=== PATIENT | female | born 1995 | race Caucasian/White ===

== ENCOUNTER 2017-08-07 20:30 | Inpatient (IN) | payer OTHER, MEDICAID, SELFPAY ==
[2017-08-07] MEDS: Lactated Ringers 1,000 ML 50 ML IV ×2 (21:04→23:06)
[2017-08-07 21:25] VITALS: BMI 41.0
[2017-08-07 21:33] LABS: Hematocrit 40.7 % (37-47); Hemoglobin 13.8 g/dl (12.0-15.0); Mean Corp Hgb Conc 33.9 g/gl (32-36); Mean Corpuscular Hgb 30.4 pg (27.0-32.0); Mean Corpuscular Volume 89.6 fL (81-99); Mean Platelet Vol. 11.1 fl (6.2-12.0); Platelet Count 188 K/mm3 (150-450); RBC Distribution Width CV 13.3 % (11.6-14.6); RBC Distribution Width SD 43.2 fl (35.1-43.9); Red Blood Count 4.54 M/mm3 (4.2-5.4); White Blood Count 11.2 K/mm3 (4.4-11.0)
[2017-08-07 21:34] LABS: Scan Indicated on CBC? Y/N NO
[2017-08-07] MEDS: Mag Hydrox/Al Hydrox/Simeth 30 ML UDC PO (21:54)
[2017-08-07] MEDS: Acetaminophen 325 MG Tablet PO (21:54)
[2017-08-08] MEDS: Oxytocin 30 units/NS 500 ml 30 UNITS/500 ML IV.SOLN IV (01:22)
[2017-08-08] MEDS: Ondansetron 4 MG/2 ML Vial IV (02:17)
[2017-08-08] MEDS: Mag Hydrox/Al Hydrox/Simeth 30 ML UDC PO (02:19)
[2017-08-08] MEDS: Lactated Ringers 1,000 ML 50 ML IV ×2 (03:19→07:26)
--- NOTE | 2017-08-08 06:37 | PCM.PN.OB ---
Subjective: Comfortable but feeling nauseous. Objective: Afeb VSS - Physical Exam General: Alert, Oriented x3, Cooperative, No apparent distress Lungs: Clear to auscultation, Normal air movement Cardiovascular: Regular rate, Regular Rhythm Abdomen: Non Tender, Gravid, Appropriate for Gestational Age Extremities: No edema, No Calf Tenderness Skin: No rashes Neurological: Neuro grossly intact Psych/Mental Status: Normal Affect Comment: CE 5-6/80/0 Weight: 217 lb 2.485 oz Body Mass Index (BMI) 41.0 Laboratory Tests Past 24 Hrs 08/07/17 08/07/17 08/07/17 21:04 21:04 21:04 WBC 11.2 H RBC 4.54 Hgb 13.8 Hct 40.7 MCV 89.6 MCH 30.4 MCHC 33.9 RDW 13.3 RDW Differential 43.2 Plt Count 188 MPV 11.1 Blood Type Cancelled O NEGATIVE A1 Antigen Typing Cancelled Rho(D) Type Cancelled Antibody Screen Cancelled NEGATIVE Assessment/Plan Admitted in early labor. FHR tracing with some episodes of lack of variability. Internal heart rate monitor placed and good response to placement. IUPC placed. Contractions appear adequate at this point. Amniotic fluid appears clear.
[2017-08-08] MEDS: Oxytocin 30 units/NS 500 ml 30 UNITS/500 ML IV.SOLN 334 UNITS IV (10:17)
--- NOTE | 2017-08-08 10:26 | PCM.OB.VAG ---
Vaginal Delivery Maternal Presentation: Active Labor 39w4d ega in early active labor Amniotic Membrane Rupture Type: Artificial Rupture of Membrane time: 0630 Amniotic Fluid Description: Clear Final COLE: 08/11/17 Final COLE Source: LMP Gestational age: 39 Weeks and 4 Days Date of Procedure: 08/08/17 Pre-Operative Diagnosis: labor Surgery/ Procedure Performed: Spontaneous Vaginal Delivery Anesthesiologist: Janeen Mandujano Type of Anesthesia: Epidural Description of Procedure: Patient progressed from 8 cm to FD+3 station. Pushed for 5 efforts to deliver the head. There was a nuchal cord x 1 tight which evulsed in attempt to reduce it. Baby was delivered immediately and the cord clamped. Baby had active cry at delivery. The placenta was delivered spontaneously intact with an eccentrically located 3VC. The uterus was well contracted after delivery. The vagina and cervix were inspected and found to be intact. Presentation: Vertex Placental Delivery Description: Spontaneous Placenta Disposition: [facility] Percentage of Placenta Abruption: 0 Cord Vessel Description: 3 Vessels Nuchal Cord Compression: With compression Cord Entanglement: Around neck x 1, tight Drain: Rockwell to straight drain Estimated Blood Loss: 300cc Infant A gender: Male (1 minute): 9 (5 minute): 9 Episiotomy Description: None Laceration: None Medications given after delivery: IV Pitocin Complications: None
--- NOTE | 2017-08-08 10:36 | DCINST_ITS ---
Discharge Diet: No Restrictions Discharge Activity: Return to Normal Activity, May Drive, May Shower Return to work on:: 10/04/17 May shower in (days): 0 May resume sexual activity in: 4-6 weeks Call your doctor if your incision/area has: Sudden Increased Bleeding, Increased Pain/ Swelling, Foul Smelling Discharge Call your doctor if you observe: Fever of 101 or Higher, Inability to urinate, Inability to have a bowel movement, Using more than one pad per hour, Shortness of breath, Chest pain, Calf discomfort, Uncontrolled pain Cleanse incision/area with: Soap & Water Additional Instructions: If you experience any of the following, contact your healthcare provider. * Bleeding that soaks a pad every hour for 2 hours * Fever 100.4 or higher * Unrelieved incision or abdominal pain * Swelling, redness, discharge or bleeding from your incision or episiotomy site * Your incision begins to separate * Problems urinating (including inability to urinate or burning while urinating) . * Visual changes * Severe headache * Flu-like symptoms * Pain or redness in one of both of your breasts * Pain, warmth, tenderness or swelling in your legs, especially the calf area * Frequent nausea and vomiting * Symptoms of depression or anxiety If you experience any of the following, call 911 or go to the nearest Emergency Room. * Chest pain * Problems breathing * Seizure activity * Partial or complete paralysis of a body part, slurred speech, weakness or drooping of the face, or a sudden inability to walk or hold your balance Allergies/Adverse Reactions: Allergies No Known Allergies Allergy (Verified 08/07/17 21:14) Medications to take at Discharge Pnv95/Ferrous Fumarate/FA [ Vitamins Tablet] 1 each PO DAILY 03/13/16 Ibuprofen [Motrin] 800 mg PO TID PRN PRN #30 tablet 08/08/17 The following prescriptions were given: Ibuprofen [Motrin] 800 mg PO TID PRN PRN #30 tablet PRN Reason: pain or cramping Please Follow Up With: William Avalos When: 6 weeks Primary Care Physician: Mustapha Weinstein [Primary Care Provider] - Proposed Discharge Date: 08/10/17
[2017-08-08] MEDS: Oxytocin 30 units/NS 500 ml 30 UNITS/500 ML IV.SOLN 167 UNITS IV (10:49)
[2017-08-08] MEDS: Methylergonovine 0.2 MG/ML Ampul IM (11:22)
[2017-08-08] MEDS: 0.9% Saline Lock 10 ML Syringe IV (11:58)
[2017-08-08 12:20] VITALS: BP 115/57; PULSE 74; RESP 18; TEMP 36.4; O2SAT 98
[2017-08-08 15:47] VITALS: BP 130/72; PULSE 94; RESP 14; TEMP 37.1; O2SAT 95
[2017-08-08 19:29] VITALS: BP 128/80; PULSE 94; RESP 20; TEMP 36.9
[2017-08-09 00:08] VITALS: BP 118/67; PULSE 94; RESP 18; TEMP 36
[2017-08-09 04:37] VITALS: BP 124/70; PULSE 78; RESP 18; TEMP 36.4
[2017-08-09 04:59] LABS: Hematocrit 37.2 % (37-47); Hemoglobin 12.9 g/dl (12.0-15.0); Mean Corp Hgb Conc 34.7 g/gl (32-36); Mean Corpuscular Hgb 31.4 pg (27.0-32.0); Mean Corpuscular Volume 90.5 fL (81-99); Mean Platelet Vol. 11.2 fl (6.2-12.0); Platelet Count 161 K/mm3 (150-450); RBC Distribution Width CV 13.3 % (11.6-14.6); Red Blood Count 4.11 M/mm3 (4.2-5.4); White Blood Count 11.7 K/mm3 (4.4-11.0)
[2017-08-09 05:02] LABS: Scan Indicated on CBC? Y/N NO
--- NOTE | 2017-08-09 07:10 | PCM.PN.OB ---
Subjective: Doing well. No specific complaints. Objective: Afeb VSS - Physical Exam General: Alert, Oriented x3, Cooperative, No apparent distress Lungs: Clear to auscultation, Normal air movement Cardiovascular: Regular rate, Regular Rhythm Abdomen: Soft, Non Tender, Non-Distended, - - Fundus firm nontender Skin: No rashes Psych/Mental Status: Normal Affect Comment: lochia light Vital Signs Temp Pulse Resp BP Pulse Ox 97.5 F 78 18 124/70 95 08/09/17 04:37 08/09/17 04:37 08/09/17 04:37 08/09/17 04:37 08/08/17 15:47 Oxygen Delivery Method Room Air Weight: 217 lb 2.485 oz Body Mass Index (BMI) 41.0 Intake and Output for Last 24 Hours 08/07/17 08/08/17 08/09/17 23:59 23:59 23:59 Intake Total 2760 Output Total 2450 Balance 310 Laboratory Tests Past 24 Hrs 08/09/17 04:45 WBC 11.7 H RBC 4.11 L Hgb 12.9 Hct 37.2 MCV 90.5 MCH 31.4 MCHC 34.7 RDW 13.3 RDW Differential 43.0 Plt Count 161 MPV 11.2 Assessment/Plan Doing well on PP day#1. Continue routine PP care.
[2017-08-09 09:00] VITALS: BP 118/78; PULSE 86; RESP 20; TEMP 36.2
[2017-08-09 14:00] VITALS: BP 116/75; PULSE 81; RESP 20; TEMP 36.6
[2017-08-09 15:00] VITALS: BP 116/75; PULSE 81; RESP 20; TEMP 36.6
--- NOTE | 2017-08-10 08:10 | PCM.DC.SUM ---
Discharge Date and Diagnosis Date of Admission: 08/07/17 Date of Discharge: 08/09/17 - Primary Discharge Diagnosis S/P Hospital Course and Treatment Consultations 08/07/17 21:09 Consult: Anesthesia Routine Comment: Reason For Exam: R Operations: None Procedures: - - Summary of Care Provided: The patient is a 22 year old F admitted in early active labor at term. Progressed to FD then pushed to deliver a live without complication. course unremarkable. Discharged home on PP day#1.[] Discharge Diet: No Restrictions Discharge Activity: Return to Normal Activity, May Drive, May Shower Return to work on:: 10/04/17 May shower in (days): 0 May resume sexual activity in: 4-6 weeks Call your doctor if your incision/area has: Sudden Increased Bleeding, Increased Pain/ Swelling, Foul Smelling Discharge Call your doctor if you observe: Fever of 101 or Higher, Inability to urinate, Inability to have a bowel movement, Using more than one pad per hour, Shortness of breath, Chest pain, Calf discomfort, Uncontrolled pain Cleanse incision/area with: Soap & Water Home Medications: Medications to take at Discharge RX: Pnv95/Ferrous Fumarate/FA [ Vitamins Tablet] 1 each PO DAILY 03/13/16 RX: Ibuprofen [Motrin] 800 mg PO TID PRN PRN #30 tablet 08/08/17 Following Prescrptions Were Given to Patient: RX: Ibuprofen [Motrin] 800 mg PO TID PRN PRN #30 tablet PRN Reason: pain or cramping Primary Care Physician: Mustapha Weinstein [Primary Care Provider] - Please Follow Up With: William Avalos When: 6 weeks Disposition: Home Minutes spent on discharge:: 15 Meaningful Use Info Meaningful Use Diagnoses (Choose all that apply): None applicable
== END 2017-08-09 15:20 | disposition home or self-care (01) | DRG 775 ==
PROVIDERS: Admitting Provider Obstetrics & Gynecology; Family Provider Family Medicine; PCP Family Medicine; Visit Provider Obstetrics & Gynecology
DX: O69.1XX0 Labor and delivery complicated by cord around neck, with compression, not applicable or unspecified (principal); B95.1 Streptococcus, group B, as the cause of diseases classified elsewhere; Z3A.39 39 weeks gestation of pregnancy; Z37.0 Single live birth
CPT/HCPCS: 59025; 59050; 85027; 86850; 86900; 86901; 99218; J7120; A4216; G0378; J0290; J2405

== ENCOUNTER → 2018-11-10 19:29 | Outpatient (CLI) | payer OTHER, MEDICAID, SELFPAY ==
[2018-11-10 21:45] LABS: Chlamydia Trachomatis by PCR Negative (Negative); Neisserai gonorrhoeae by PCR Negative (Negative); Probe Check PASS; Sample Adequacy Control PASS; Specimen Processing Control PASS
[2018-11-15 10:48] LABS: HPV Reflexed? NOT INDICATED
--- OUTSIDE RECORDS SUMMARY | 2018-12-27 15:14 | XMS RPT_ITS ---
:1995 Author Organization OHIP Care Team Providers Name Role William Gentile Attending Unavailable STENCEL, SHI Primary Care Unavailable Seals, William Referring Unavailable Seals, William Attending Unavailable Stencel, Shi Attending Unavailable Stencel, Shi Primary Care Unavailable Michael Blackwell Attending Unavailable Stencel, Shi Primary Care Unavailable Stencel, Shi Attending Unavailable Stencel, Shi Primary Care Unavailable Stencel, Shi Admitting Unavailable Stencel, Shi Attending Unavailable Stencel, Shi Primary Care Unavailable Stencel, Shi Admitting Unavailable Stencel, Shi Attending Unavailable Stencel, Shi Primary Care Unavailable RuthAdali camacho Attending Unavailable Stencel, Shi Primary Care Unavailable RuthAdali Admitting Unavailable RuthAdali Admitting Unavailable RuthAdali Attending Unavailable Stencel, Shi Primary Care Unavailable [place], Ngoc S Attending Unavailable [place], Ngoc S Admitting Unavailable [place], Ngoc S Primary Care Unavailable Pastor Escobar Admitting Unavailable Pastor Escobar Attending Unavailable Michael Blackwell Primary Care Unavailable [place], Ngoc S Attending Unavailable [place], Ngoc S Primary Care Unavailable [place], Ngoc S Attending Unavailable [place], Ngoc S Primary Care Unavailable [place], Ngoc S Admitting Unavailable [place], Ngoc S Attending Unavailable [place], Ngoc S Primary Care Unavailable [place], Ngoc S Attending Unavailable [place], Ngoc S Primary Care Unavailable [place], Ngoc S Admitting Unavailable [place], Ngoc S Attending Unavailable [place], Ngoc S Primary Care Unavailable [place], Ngoc S Attending Unavailable [place], Ngoc S Primary Care Unavailable [place], Ngoc S Admitting Unavailable [place], Ngoc S Attending Unavailable [place], Ngoc S Primary Care Unavailable PROBLEMS PROBLEMS DATE TYPE CONDITION / CODE ATTENDING STATUS SOURCE 11/25/2018 Unknown Z34.81 - Encounter William Avalos for supervision of Community other normal Hospital , first Repository trimester / Z34.81(ICD-10) 11/11/2018 Unknown Z32.01 - Encounter William Avalos for test, Community result positive / Hospital Z32.01(ICD-10) Repository 11/11/2018 Unknown Z11.3 - Encounter William Avalos for screening for Community infections with a Hospital predominantly Repository sexual mode of transmission / Z11.3(ICD-10) 11/11/2018 Unknown Z12.4 - Encounter William Avalos for screening for Community malignant neoplasm [facility] / Repository Z12.4(ICD-10) PROCEDURES PROCEDURES No Procedure Records FoundRESULTS RESULTS URINE DRUG SCREEN Collected: 11/25/2018 Status: F Source: JESE (STONEY) 9:47 AM [facility] REPOSITORY Order Comment: Comments: CHECK IMMUNITY STATUS List of Drugs Taken or Suspected? UNK TYPE CODE TESTS RESULT OUT OF RANGE REFERENCE UNITS LAB L505.0075 TO BE Normal CONFIRMED Result Comment: CONFIRMATORY TESTING FOR ALL POSITIVE URINE DRUG SCREEN RESULTS WILL ONLY BE SENT OUT UPON PHYSICIAN ORDER. VISTA Urine Drug Screen methods provide only preliminary analytical test results. A more specific alternate chemical method must be used in order to obtain a confirmed analytical result. Gas chromatography/mass spectrometery (GC/MS) is the preferred confirmatory method. Clinical consideration and professional judgement should be applied to any drug of abuse test result, particularly when preliminary positive results are used. URINE TCA TESTING MUST BE ORDERED SEPARATELY. USE TEST MNEMONIC: [facility] LAB L505.5005 VISTA UDS PH 6 Normal LAB L505.5015 <1000 ng/mL AMPHETAMINES Normal NEGATIVE LAB L505.5025 < 200 ng/mL BARBITIURATES Normal NEGATIVE LAB L505.5035 < 200 ng/mL BENZODIAZIPINE Normal NEGATIVE LAB L505.5045 < 300 ng/mL COCAINE Normal NEGATIVE LAB L505.5055 < 500 ng/mL ECSTACY Normal NEGATIVE LAB L505.5065 < 300 ng/mL METHADONE Normal NEGATIVE LAB L505.5075 < 300 ng/mL OPIATES Normal NEGATIVE LAB L505.5085 < 25 ng/mL PCP Normal NEGATIVE LAB L505.5095 < 50 ng/mL THC Normal NEGATIVE Performed By: #### L505.5000, L505.6240 #### [facility] [address] [facility] [place], [place], [id number] NICOTINE URINE DRUG Collected: 11/25/2018 Status: F Source: JESE SCREEN 9:47 AM [facility] REPOSITORY Order Comment: Comments: CHECK IMMUNITY STATUS List of Drugs Taken or Suspected? UNK TYPE CODE TESTS RESULT OUT OF RANGE REFERENCE UNITS LAB L505.6250 TO BE Normal CONFIRMED Result Comment: CONFIRMATORY TESTING FOR ALL POSITIVE URINE DRUG SCREEN RESULTS WILL ONLY BE SENT OUT UPON PHYSICIAN ORDER. The results of Urine Drug Screen methods provide only preliminary analytical test results. A more specific alternate chemical method must be used in order to obtain a confirmed analytical result. Gas chromatography/mass spectrometery (GC/MS) is the preferred confirmatory method. Clinical consideration and professional judgement should be applied to any drug of abuse test result, particularly when preliminary positive results are used. LAB L505.6270 <200 ng/mL Normal COT DRG Negative SCREEN Result Comment: Cotinine is the first-stage metabolite of Nicotine. Performed By: #### L505.5000, L505.6240 #### [facility] [address] [place], [address] URINALYSIS, ROUTINE Collected: 11/25/2018 Status: F Source: JESE (DIPSTICK) 9:47 AM [facility] REPOSITORY Order Comment: Comments: CHECK IMMUNITY STATUS How was Urine Obtained? Urine, Random TYPE CODE TESTS RESULT OUT OF RANGE REFERENCE UNITS LAB L400.3000 Yellow COLOR Normal Yellow LAB L400.3050 Clear Normal CLARITY Sl. Cloudy LAB L400.3200 Normal mg/dl Normal GLUCOSE, UR Normal LAB L400.3300 Negative mg/dL Normal BILIRUBIN URINE Negative LAB L400.3400 Negative mg/dl Normal KETONE UR Negative LAB L400.3465 1.002-1.030 Normal SP.GR. DIPSTX 1.020 LAB L400.3550 5.0 - 8.0 pH UR Normal 6.0 LAB L400.3600 Negative mg/dl PROT Normal DIPSTX Negative LAB L400.3700 Normal mg/dl Normal UROBILI Normal LAB L400.3750 Negative Normal NITRITE UR Negative LAB L400.3780 Negative /ul Normal OCCULT BLOOD-UR Negative LAB L400.3800 Negative /ul LEUK Normal ESTERASE Negative Performed By: #### L400.2011 #### [facility] [address] [place], [address] CBC W/DIFF, AUTOMATED Collected: 11/25/2018 Status: F Source: THOUSANDSTICKS 9:47 AM [facility] REPOSITORY TYPE CODE TESTS RESULT OUT OF RANGE REFERENCE UNITS LAB L100.1000 4.4-11.0 K/mm3 Normal WBC 7.5 LAB L100.1200 4.2-5.4 M/mm3 Normal RBC 4.60 LAB L100.1300 12.0-15.0 g/dl Normal HGB 13.3 LAB L100.1400 37-47 % Normal HCT 39.1 LAB L100.1500 81-99 fL Normal MCV 85.0 LAB L100.1600 27.0-32.0 pg Normal MCH 28.9 LAB L100.1700 32-36 g/gl Normal MCHC 34.0 LAB L100.1810 11.6-14.6 % Normal RDW CV 13.0 LAB L100.1820 35.1-43.9 fl Normal RDW SD 40.3 LAB L100.1900 150-450 K/mm3 Normal PLT 272 LAB L100.2000 6.2-12.0 fl Normal MPV 10.2 LAB L100.2100 47-70 % Normal NEUT% 65.9 LAB L100.2200 19-41 % Normal LY% 27.1 LAB L100.2300 0-10 % Normal MONO% 5.7 LAB L100.2400 0-5 % Normal EO% 1.1 LAB L100.2500 0-1 % Normal BASO% 0.1 LAB L100.2550 0.0-0.9 % Normal IM GRAN % 0.100 Result Comment: IG% - Immature Granulocytes (promyelocytes, myelocytes and metamyelocytes) > 1% indicates that a LEFT SHIFT is Present. LAB L100.2620 2.0-7.7 X10 3/uL Normal Absolute Neut 5.0 LAB L100.2720 0.83-4.51 X10 3/ul Normal Absolute Lymph 2.04 Performed By: #### L100.0100 #### [facility] [address] [place], [address] THYROID STIM HORMONE Collected: 11/25/2018 Status: F Source: JESE (TSH) 9:47 AM [facility] REPOSITORY TYPE CODE TESTS RESULT OUT OF RANGE REFERENCE UNITS LAB L501.9520 0.358-3.74 uIU/mL Normal TSH 0.38 Performed By: #### L501.9520 #### [facility] [address] [facility] [address] [place], [address] T AND S-NO Collected: 11/25/2018 Status: F Source: JESE CHARGE W/PNP 9:47 AM [facility] REPOSITORY Order Comment: Reason for Type AND Screen/Red Cells: Surgery? N TYPE CODE TESTS RESULT OUT OF RANGE REFERENCE UNITS LAB B10.0800 O Normal BLOOD NEGATIVE TYPE GEL LAB B100.4050 Normal Ab SCREEN NEGATIVE GEL Performed By: #### B100.7550 #### [facility] [address] [place], [address] RUBELLA IGG Collected: 11/25/2018 Status: F Source: THOUSANDSTICKS 9:47 AM [facility] REPOSITORY Order Comment: Comments: CHECK IMMUNITY STATUS TYPE CODE TESTS RESULT OUT OF RANGE REFERENCE UNITS LAB L509.4000 IU/mL Normal Rubella IgG 18.6 Result Comment: Antibody results Interpretation of Immune Status < 5 IU/ml Presumed Non-immune 5 - < 10 IU/ml Equivocal > or = 10 IU/ml Presumed Immune Performed By: #### L509.4000, L3890.6005 #### [facility] [address] [facility] [address] [place], [address] HIV - WCH Collected: 11/25/2018 Status: F Source: JESE 9:47 AM [facility] REPOSITORY Order Comment: Comments: CHECK IMMUNITY STATUS TYPE CODE TESTS RESULT OUT OF RANGE REFERENCE UNITS LAB L3890.6005 Nonreactive Normal HIV - WCH Non-Reactive Performed By: #### L509.4000, L3890.6005 #### [facility] [address] [place], [address] HEPATITIS B SURFACE Collected: 11/25/2018 Status: F Source: JESE AG 9:47 AM [facility] REPOSITORY Order Comment: Comments: CHECK IMMUNITY STATUS TYPE CODE TESTS RESULT OUT OF RANGE REFERENCE UNITS LAB L3100.0400 Negative Normal HB Negative SURF AG Result Comment: Performed at: [facility] [address] [id number] Park Activities Coordinator: Raman Lowe PhD, Phone: [phone] Performed By: #### L3100.0390, L3100.0625, L3400.0000 #### [facility] (refer to report for specific site) refer to report for address and phone number HEPATITIS C ANTIBODIES Collected: 11/25/2018 Status: F Source: JESE 9:47 AM [facility] REPOSITORY Order Comment: Comments: CHECK IMMUNITY STATUS TYPE CODE TESTS RESULT OUT OF RANGE REFERENCE UNITS LAB L3100.0650 0.0-0.9 s/co ratio Normal HEP C AB <0.1 Result Comment: Negative: < 0.8 Indeterminate: 0.8 - 0.9 Positive: > 0.9 The CDC recommends that a positive HCV antibody result be followed up with a HCV Nucleic Acid Amplification test (575500). Performed By: #### L3100.0390, L3100.0625, L3400.0000 #### [facility] (refer to report for specific site) refer to report for address and phone number V-ZOSTER IGG Collected: 11/25/2018 Status: F Source: JESE (IMMUNITY) 9:47 AM [facility] REPOSITORY Order Comment: Comments: CHECK IMMUNITY STATUS TYPE CODE TESTS RESULT OUT OF RANGE REFERENCE UNITS LAB L3400.0000 Immune >165 index Normal VZOST IgG 440 [address] Result Comment: Negative <135 Equivocal 135 - 165 Positive >165 A positive result generally indicates exposure to the pathogen or administration of specific immunoglobulins, but it is not indication of active infection or stage of disease. Performed By: #### L3100.0390, L3100.0625, L3400.0000 #### [facility] (refer to report for specific site) refer to report for address and phone number RPR Collected: 11/25/2018 Status: F Source: THOUSANDSTICKS 9:47 AM [facility] REPOSITORY TYPE CODE TESTS RESULT OUT OF REFERENCE UNITS RANGE LAB L700.5100 NONREACTIVE Normal RPR NONREACTIVE Performed By: #### L700.5100 #### [facility] [address] [place], [address] CT/NG WCH BY PCR Collected: 11/10/2018 Status: F Source: THOUSANDSTICKS 3:05 PM [facility] REPOSITORY TYPE CODE TESTS RESULT OUT OF RANGE REFERENCE UNITS LAB L8200.2100 Negative Normal Chlam Negative Trac PCR LAB L8200.2200 Negative Normal NG by Negative PCR Performed By: #### L8200.2000 #### [facility] [address] 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 Specimen Comment: No. of containers..01 ThinPrep Vial TYPE CODE TESTS RESULT OUT OF RANGE REFERENCE UNITS LAB L7400.0800 . Normal DIAGN Comment Result Comment: NEGATIVE FOR INTRAEPITHELIAL LESION AND MALIGNANCY. LAB L7400.0900 . Normal ADEQ Comment Result Comment: Satisfactory for evaluation. Endocervical and/or squamous metaplastic cells (endocervical component) are present. LAB L7400.1400 . Normal PERFORM Comment Result Comment: Vesna Griffith Rn Physician Office (ASCP) LAB L7400.2575 . Normal TEST METHOD Comment Result Comment: This liquid based ThinPrep(R) pap test was screened with the use of an image guided system. LAB L7400.2600 . Normal . COMM LAB L7400.2700 . Normal PAPSMR Comment Result Comment: The Pap smear is a screening test designed to aid in the detection of premalignant and malignant conditions of the uterine cervix. It is not a diagnostic procedure and should not be used as the sole means of detecting cervical cancer. Both false-positive and false-negative reports do occur. LAB L7400.2800 . Normal HPV RFLX Comment Result Comment: The HPV DNA reflex criteria were not met with this specimen result therefore, no HPV testing was performed. Performed at: [facility] [address] [id number] Park Activities Coordinator: Siri Conklin MD, Phone: [phone] Performed By: #### L7400.0350 #### [facility] (refer to report for specific site) refer to report for address and phone number XR CHEST 2 VIEWS Observed: 09/08/2018 Status: F Source: SHINTO 10:12 AM [facility] REPOSITORY Exam Date/Time: 09/08/2018 10:19 EDT Reason for Exam: Chest pain Report STUDY: XR Chest 2 Views; 09/08/2018 10:19 am INDICATION: Chest pain. COMPARISON: None. ACCESSION NUMBER(S): [id number] ORDERING CLINICIAN: Ngoc Rivas FINDINGS: PA and lateral views of the chest were obtained. No focal infiltrate, pleural effusion or pneumothorax is identified. The cardiac silhouette is within normal limits for size. IMPRESSION: No focal infiltrate or pneumothorax. FINAL REPORT Dictated: 09/08/2018 11:01 am Julian Schmidt MD Signed (Electronic Signature): 09/08/2018 11:01 am Signed by: Julian Schmidt MD Technologist: TRBerlin CBC W/ AUTO DIFF Collected: 07/21/2018 Status: F Source: SHINTO 4:00 PM [facility] REPOSITORY TYPE CODE TESTS RESULT OUT OF RANGE REFERENCE UNITS LAB 36027892(L 3.6-11.0 E3/mcL OINC) Normal WBC 8.7 LAB 89283393(L 3.90-5.40 E6/mcL OINC) Normal RBC 4.98 LAB 30008237(L 12.0-16.0 G/DL OINC) Normal Hgb 14.6 LAB 68889669(L 36.0-48.0 % OINC) Normal Hct 43.8 LAB 65354148(L 11.5-14.5 % OINC) Normal RDW 13.7 LAB 35958129(L 27.0-31.0 pg OINC) Normal MCH 29.3 LAB 92420114(L 33.0-37.0 G/DL OINC) Normal MCHC 33.4 LAB 88600134(L 78.0-100.0 fL OINC) Normal MCV 87.9 LAB 16690299(L 7.4-11.0 fL OINC) Normal MPV 9.1 LAB 60902560(L 130-400 E3/mcL OINC) Normal Platelet 285 Performed By: #### [id number] #### [facility] [address] [place] [address] AUTO DIFF Collected: 07/21/2018 Status: F Source: SHINTO 4:00 PM [facility] REPOSITORY Order Comment: Order Added by Discern Expert. TYPE CODE TESTS RESULT OUT OF RANGE REFERENCE UNITS LAB 30120200(L 37.0-75.0 % OINC) Normal Neutro Auto 61.9 LAB 18739512(L 20.0-55.0 % OINC) Normal Lymph Auto 29.6 LAB 40881846(L 0.0-10.0 % OINC) Normal [place] Auto 7.3 LAB 92142218(L 0.0-11.0 % OINC) Normal Eos Auto 0.9 LAB 32911022(L 0.0-2.0 % OINC) Normal Basophil Auto 0.3 LAB 94723408(L 1.4-6.5 E3/mcL OINC) Normal Neutro 5.4 Absolute LAB 06087056(L 1.2-3.4 E3/mcL OINC) Normal Lymph Absolute 2.6 LAB 17554313(L 0.0-0.7 E3/mcL OINC) Normal [place] Absolute 0.6 LAB 97726559(L 0.0-0.7 E3/mcL OINC) Normal Eos Absolute 0.1 LAB 98500618(L 0.0-0.2 E3/mcL OINC) Normal Basophil 0.0 Absolute Performed By: #### [id number] #### [facility] [address] [place] [address] TSH Collected: 07/21/2018 Status: F Source: SHINTO 4:00 PM [facility] REPOSITORY TYPE CODE TESTS RESULT OUT OF RANGE REFERENCE UNITS LAB 14878115(LO 0.30-5.60 mIU/m INC) Normal TSH 1.29 Performed By: #### [id number] #### [id number] HEAD OR BRAIN W/O Observed: 07/12/2018 Status: F Source: SHINTO CONTRAST 6:12 PM [facility] REPOSITORY Exam Date/Time: 07/12/2018 18:21 EDT Reason for Exam: Headache Report STUDY: CT Head or Brain w/o Contrast; 07/12/2018 6:21 pm INDICATION: Headache. COMPARISON: None. ACCESSION NUMBER(S): [id number] ORDERING CLINICIAN: Pastor Escobar TECHNIQUE: Axial CT images were acquired through the brain without intravenous contrast. DOSE: 934 mGy x cm FINDINGS: The ventricles and sulci are within normal limits for the patient's age. There is no acute intracranial hemorrhage, mass effect, or midline shift. There is no loss of normal braun white matter differentiation. The basal cisterns are patent. There is no acute pathology in the posterior fossa. The visualized intraorbital contents are clear. The paranasal sinuses, mastoid air cells, and middle ear cavities are clear. There is no soft tissue swelling of the scalp. There is no acute fracture of the skull base or calvarium. IMPRESSION: No evidence of acute intracranial pathology. 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 COMPARISON: None. ACCESSION NUMBER(S): [id number] ORDERING CLINICIAN: Adali Miranda TECHNIQUE: Multiple grayscale ultrasonographic images were obtained through the right breast in the region of palpable abnormality. FINDINGS: There is no ultrasonographic mass or asymmetry identified in the region of palpable abnormality. IMPRESSION: No ultrasonographic evidence of malignancy. BI-RADS CATEGORY: Category: 1 - Negative. Recommendation: Normal Interval Follow-up, Under Age 40. Recall Interval: 12 Months. Breast Density: Heterogeneous. FINAL REPORT Dictated: 05/25/2018 12:07 pm Julian Schmidt MD Signed (Electronic Signature): 05/25/2018 12:07 pm Signed by: Julian Schmidt MD Technologist: MARGARITA Assessment: BI-RADS Category 1-Negative Recommendation: Normal interval follow-up US HEAD/NECK SOFT Observed: 03/29/2018 Status: F Source: SHINTO TISSUE 2:04 PM [facility] REPOSITORY Exam Date/Time: 03/29/2018 14:34 EDT Reason for Exam: SWELLING NECK FULLNESS;Swelling Report ULTRASOUND RIGHT NECK. HISTORY: Pain along the angle of the right mandible and parotid area. FINDINGS: There is no cervical lymphadenopathy on either side. The parotid glands are bilaterally symmetrical. No swelling was seen on this examination in the right parotid gland or at the angle of the right mandible. IMPRESSION: Essentially normal examination of the right neck in the area of the patient's discomfort. No mass lesion. No cervical lymphadenopathy. If the symptoms continue or worsen then evaluation with CT scanning of the neck may be of value. FINAL REPORT Dictated: 03/29/2018 4:13 pm Benjamin Rayo MD Signed (Electronic Signature): 03/29/2018 4:13 pm Signed by: Benjamin Rayo MD Technologist: FABIOLA XR CLAVICLE RIGHT Observed: 01/12/2018 Status: F Source: SHINTO 9:59 AM [facility] REPOSITORY Exam Date/Time: 01/12/2018 10:06 EST Reason for Exam: Joint pain Report XR CLAVICLE RIGHT, 01/12/2018, 9:59 AM CLINICAL STATEMENT: Lump on right clavicle for 3 months. No known injury. COMPARISON: None. FINDINGS: 2 views of the right clavicle were obtained. There is no evidence of acute fracture or malalignment. The cortical surfaces are smooth in contour. AC joint is aligned. Visualized portions of the glenohumeral joint are unremarkable. Upper right thorax is unremarkable. IMPRESSION: Radiographic appearance of the right clavicle is within normal limits. FINAL REPORT Dictated: 01/12/2018 12:47 pm Huang Linder MD Signed (Electronic Signature): 01/12/2018 12:47 pm Signed by: Huang Linder MD Technologist: MICHAEL ALLERGIES ALLERGIES DATE TYPE / CODE NAME / CODE REACTION SEVERITY SOURCE 08/07/2017 Drug No Known Unknown Jese Allergy/416 Allergies/[id number] [facility] 896130(SN 388(RXNORM) [facility] ED CT) Repository Drug/139569 No Known Zoroastrianism 003(SNOMED Allergies [facility] CT) System Repository Drug/266934 No Known Zoroastrianism 003(SNOMED Medication [facility] CT) Allergies System Repository ENCOUNTERS ENCOUNTERS ADMIT/DISCHARGE ACCOUNT NUMBER ADMITTING ENCOUNTER LOCATION SOURCE CLASS 11/25/2018 [id number] [facility] ing:[facility] Repository 11/10/2018 [id number] [facility] ing:[facility] Repository 09/12/2018/09/12/20 [id number] Ambulatory [address] ing:[place] Repository Medic 09/08/2018/09/08/[id number] ing:[facility] Repository 09/08/[id number] Repository 08/25/2018 [id number] Ambulatory [facility] ing:[place] Repository Medic 08/25/2018/08/25/20 [id number] [place] [address] [facility] Rep[facility] MedicRoom: Room 1 08/16/2018/08/16/20 [id number] Ambulatory [address] ing:[place] Repository Medic 08/09/2018/08/09/20 [id number] Ambulatory [address] ing:[place] Repository Medic 07/21/2018/07/21/20 [id number] [place], Ambulatory [address] ing:[facility] Repository 07/21/2018 [id number] Ambulatory [address] [place] [address] Repository 07/19/2018/07/19/20 [id number] [place], [address] ing:[place] Repository MedicRoom: Room 2 07/12/2018/07/12/20 [id number] Pastor Escobar [address] Regional ing:[facility] EDRoom: WR Repository 07/12/2018 [id number] Ambulatory [address] [place] [address] Repository 05/25/2018/05/25/20 [id number] Adali Miranda [address] Regional ing:[facility] Repository 05/25/2018 [id number] Ambulatory [address] [place] [address] Repository 05/19/2018/05/19/20 [id number] Adali Miranda [address] ing:[facility] Repository Domenico: Room 1 03/29/2018/03/29/[id number] [place], [address] Regional ing:[facility] Repository 01/12/2018/01/12/20 [id number] [place], [address] ing:[facility] Repository 01/11/2018/01/11/20 [id number] Ambulatory Medical [facility]oroastrianism [address] [facility] [place] Med AssocRoom: Room 2 01/07/2018/01/07/20 [id number] Ambulatory Medical [address] [place] Med [facility]oc 12/29/2017/12/29/19 [id number] [address] Repository Med Assoc PAYERS PAYERS ENCOUNTER GUARANTOR PAYER SUBSCRIBER SOURCE 11/25/2018 CRISTIAN Primary ELIZABETH ARAYAKEYDOB: Jese [id number] Insurance[id number] [address] [place] [address], Number: Repository [place] [address]Lep: [id number] Date:[id number] [address] () [address] [address]RP: 11/25/2018 Secondary CRISTIAN Sawyer Insurance:PARAM[place] HICKEYDOB: [facility] [id number] Hospital Number: Repository [id number] Date:[id number] [address] [place] [address]NQ: 11/25/2018 Tertiary NOT GIVENUNK Jese Insurance:SELF PAY [facility] Number: Effective Repository Date:2018-11-25 11/10/2018 CRISTIAN Primary ELIZABETH COHENDOB: Jese [id number] Insurance:[facility]ICAL [id number] [address] [place] [address], Number: Repository [place] [address]Hej: [id number] Date:4929-80-63GE [address] () [address] [address]IY: 11/10/2018 Secondary CRISTIAN Jese Insurance:PARAMOUNT HICKEYDOB: [facility] [id number] Hospital Number: Repository [id number] Date:8103-38-94XW [address] [place] [address]BF: 11/10/2018 Tertiary NOT GIVENUNK Jese Insurance:SELF PAY [facility] Number: Effective Repository Date:2018-11-10 09/12/2018 CRISTIAN E Primary ELIZABETH DENNISDOB: Insurance:1500 HICKEYDOB: [facility] MEDICAL MUTUALPolicy [id number] System [facility], Number: Effective [address] Repository [place] Date:2018-09-06 [place] [address]Qlv: 3730-20-81Elzf [place] Name:CD:[id number] [address]Vdd: (HP) [address], [place] [address]DP: (800) (HP) 000-0000 (WP) 09/12/2018 Secondary [facility] E Zoroastrianism Insurance:1500 HUFFDOB: [facility] [id number] System ADVANTAGE/MEDICAIDPol [facility], [facility] icy Number: Effective [place] Date:2018-09-06Tel: 0825-30-19Navn Name:CD:[id number] (HP)Tel: (000) [address], [place] 000[address] (WP) [address]KZ: 09/08/2018 CRISTIAN E Primary ELIZABETH ZULUAGAB: Insurance:Medical HICKEYDOB: [facility] MutualPolicy Number: [id number] System [facility], [address] Repository [place] Date:2018-09-08 [place] [address]Amy: 0027-88-35Fcfm [place] Name:Medical [place] [address]Fsh: (HP) [address], [place] [address]FM: (800) (HP) 000-0000 (WP) 09/08/2018 Secondary [facility] E Zoroastrianism Insurance:PARAMOUNT HUFFDOB: [facility] [id number] System MCOPolicy Number: [place], Repository Effective [place] Date:2018-09-08 [address]Vxu: [id number] Name:CD:[id number] (HP)Tel: 000) [address], [place] 000[address] (WP) [address]JV: 09/08/2018 [facility]IZABETH [facility]: [facility]: Insurance:[facility] [id number] [facility], Number: [place] [id number]: [id number] Date:Plan Name:Health () 09/08/2018 [facility] Insurance:[facility] 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 Insurance [employer] [id number] Repository MedicaidPolicy [place], Number: [place] [id number]: [id number] Date:Plan () Name:HealthP [address], [place] [id number]: 08/25/2018 [facility] CenterB: Insurance:[address] [place], [place] [address]B: [facility] [id number] [facility], Number: [address] Repository [place] Date:2018-08-25 - [place] [address]Vdt: 6125-64-01Suoi [place] Name:CD:[id number] [address]Vkq: (HP) [address], [place] [address]CG: (662) (HP) [phone] (WP) 08/25/2018 [facility] Zoroastrianism Insurance:[address] [place], [place] [address]DOB: [facility] [id number] System ADVANTAGE/MEDICAIDPol [facility], Repository icy Number: Effective [place] Date:2018-08-25Tel: 0971-68-45Ankv Name:CD:[id number] (HP)Tel: (000) [address], [place] 000-0000 (WP) [address]RS: 08/25/2018 CRISTIAN ZULUAGAB: Insurance:[address] [place], [place] [address]B: [facility] MEDICAL MUTUALPolicy [id number] [facility], Number: Effective [address] Repository [place] Date:2018-08-25 - [place] [address]Cke: [id number] [facility], [place] Name:CD:[id number] [address]Lgl: (HP) [address] [place] [address]NO: (800) (HP) 000-0000 (WP) 08/25/2018 Secondary CRISTIAN Patti Palma Insurance:[address] [place], [place] [address]B: [facility] [id number] System ADVANTAGE/MEDICAIDPol [facility], Repository icy Number: Effective [place] Date:2018-08-25 [address]Wwg: [id number] Name:CD:[id number] (HP)Tel: (000) [address], [place] 000[address] (WP) [address]JG: 08/16/2018 CRISTIAN Patti [facility] ELIZABETH Palma ESTRELLAB: Insurance:Medical [facility]ITALKEYD[facility]: [facility] MutualPolicy Number: [id number] [facility], [address] Repository [place] Date:2018-08-09 [place] [address]Ewc: 3091-06-69Pavq [facility], [place] Name:Medical MutualPO [address]Unj: (HP) [address], [place] [id number]: (800) (HP) 000-0000 (WP) 08/16/2018 Secondary CRISTIAN E Zoroastrianism Insurance:PARAMOUNT HUFFDOB: [facility] MCAID [id number] System MCOPolicy Number: ADELSO SHAREEAURORA HEALTH CARE HEALTH CENTERBeck Effective [place] Date:2018-08-09[address]Wbf: 2695-08-83Tnmo Name:CD:[id number] (HP)Tel: (000) [address], [place] [address] (WP) [address]IF: 08/09/2018 [facility] E Primary ELIZABETH Palma [facility] CENTERDOB: Insurance:1500 HICKEYDOB: [facility] MEDICAL LOVELADYPolicy [id number] System [facility], Number: Effective [address] Repository [place] Date:2018-07-19 [place] [id number]: 8801-29-57Agss [place] Name:CD:[id number] [address]Smr: (HP) [address], [place] [address]WP: (907) (HP) 000-0000 (WP) 08/09/2018 Secondary CRISTIAN E Zoroastrianism Insurance:1500 HUFFDOB: [facility] [id number] System ADVANTAGE/MEDICAIDPol [facility], [facility] icy Number: Effective [place] Date:2018-07-1977[address]Vhi: 9351-37-58Qsls Name:CD:[id number] (HP)Tel: (000) [address], [place] 000-0000 (WP) [address]IG: 07/21/2018 [facility] E Primary ELIZABETH ZULUAGAB: Insurance:Medical HICKEYDOB: [facility] MutualPolicy Number: [id number] System [facility], Effective [address] Repository [place] Date:2018-07-21 [place] [address]Hxk: 9923-93-86Gahn [place] Name:[facility] [address]Jvo: (HP) [address], [place] [address]CO: (076) (HP) 000-0000 (WP) 07/21/2018 Secondary [facility] Insurance:PARAMOUNT HUFFDOB: [facility] [id number] [place] [address] Number: ADELSO SHAREEAUROR[facility], Repository Effective [place] Date:2018-07-21 [address]Okx: 3471-80-78Gbwf Name::[id number] ()Tel: (000) [address], [place] 000-0000 (WP) [address]KH: 07/21/2018 [facility] ELIZABETH HOOKERB: [facility]B: Insurance:[facility] [id number] [facility] Repository [facility], Number: [place] [id number]: [id number] Date:Plan Name:Health () 07/21/2018 Secondary [facility] Insurance:[facility] Repository Number: [id number] Date:Plan Name:Health 07/21/2018 [facility] Insurance:[facility] HospitalB: [facility] Insurance [facility] [id number] Repository MedicaidPolicy [place], Number: [place] [id number]: [id number] Date:Plan (HP) Name:Health [address], [place] [id number]: 07/19/2018 [facility] ELIZABETH Zoroastrianism [employer]B: Insurance:[address] [place], [place] [address]B: [facility] [id number] System [facility], Number: Effective [address] Repository [place] Date:2018-07-19 - [place] [address]Okm: 3970-09-66Hyjs [place] Name:CD:[id number] [address]Mpb: (HP) [address] [address]RL: (800) (HP) 000-0000 (WP) 07/19/2018 Secondary [facility] Insurance:[address] [place], [place] [address]DOB: [facility] [id number] System ADVANTAGE/MEDICAIDPol [facility], [facility] icy Number: Effective [place] Date:2018-07-19Tel: 7870-84-08Pvnw Name:CD:[id number] ()Tel: (000) [address], [place] 000-0000 (WP) [address]ZC: 07/12/2018 [facility] CenterariChildress Regional Medical CenterDOB: Insurance:Medical [facility]B: [facility] MutualPolicy Number: [id number] System [facility], Effective [address] Repository [place] Date:2018-07-12 [place] [address]Ebi: 6800-26-86Toip [place] Name:Medical [place] [address]Jfw: (HP) [address]QMLAECBIJ, [place] [id number]: (800) (HP) 000-0000 (WP) 07/12/2018 Secondary CRISTIAN E Zoroastrianism Insurance:PARAMOUNT [facility] HEALTH CENTERDOB: [facility] [id number] System MCOPolicy Number: [facility] Effective [place] Date:2018-07-1287671-47[address]Sxv: 0011-47-04Qwuq Name:CD:[id number] (HP)Tel: (000) [address], [place] 000[address] (WP) [address]OK: 07/12/2018 [facility] Primary ELIZABETH MARSHALDORYSB: [facility]B: Insurance:Medical [id number] [facility] Repository [facility], Number: [place] [id number]: [id number] Date:Plan Name:Health () 07/12/2018 Secondary [facility] Insurance:[facility] HospitalB: [facility] Insurance [facility] [id number] Repository MedicaidPolicy [place], Number: [place] [id number]: [id number] Date:Plan () Name:[facility] [address], [place] [id number]: 05/25/2018 [facility] HospitalDARLYN Palma [employer] [facility] BO[employer]B: Insurance:[facility]: [facility] Number: [id number] System [facility], Effective [address] Repository [place] Date:2018-05-20 [place] [address]Dbq: 8635-68-19Rjay [place] Name:[facility] [address]Pho: (HP) [address]ODXHMEUT[address], [place] [address]BB: (948) () 000-0000 (WP) 05/25/2018 Secondary [facility] Insurance:[facility]: [facility] [id number] System OPolicy Number: [facility], Repository Effective [place] Date:2018-05-20[address]Zqj: 4557-72-45Kyyzlan Name::[id number] ()Tel: (000) [address] [place] 000-0000 (WP) [address]AD: 05/25/2018 [facility] ELIZABETH COHENB: [facility]B: Insurance:Medical [id number] [facility] Repository [facility], Number: [place] [id number]: [id number] Date:Plan Name:Health () 05/25/2018 [facility] Insurance:[place] HUFFDOB: [facility] Insurance [facility] [id number] Repository MedicaidPolicy [place], Number: [place] [id number]: [id number] Date:Plan () Name:Health [address], [place] [id number]: 05/19/2018 [facility] ELIZABETH M Louie ZULUAGAB: Insurance:1500 [facility]: [facility] [id number] [facility], Number: Effective [address] Repository [place] Date:2018-05-19 [place] [address]Tic: 1747-78-23Mfan [place] Name:CD:[id number] [address]Lgj: (HP) [address], [place] [address]WP: (085) (HP) [phone] (WP) 05/19/2018 [facility] Insurance:1500 FFDOB: [facility] [id number] System ADVANTAGE/MEDICAIDPol [facility], Repository icy Number: Effective [place] Date:2018-05-19 [address]Wuq: 3526-88-86Gatw Name:CD:[id number] ()Tel: (000) [address], [place] 000-0000 (WP) [address]QH: 03/29/2018 [facility] ELIZABETH Wallace Zoroastrianism ZANB: Insurance:Medical [facility]B: [facility] Doctors' Hospitalic Number: [id number] Sacred Heart Medical CenterSHAURORA [facility], Effective [address] Repository [place] Date:2018-01-18 [place] [address]Ooa: 7138-80-99Qhpi [place] Name:Medical MutualPO [address]Cuk: (HP) [address]KLMUYUJQW, [place] [id number]: (800) (HP) 000-0000 (WP) 03/29/2018 Secondary [facility] Insurance:[facility]ITALB: [facility] [id number] System MCOPolicy Number: ADELSO MARIN Repository Effective [place] Date:2018-01-18 [address]Fiu: 0665-57-30Cpbx Name:CD:[id number] (HP)Tel: (000) [address], [place] 000-[address] (WP) [address]TQ: 01/12/2018 [facility] HospitalDOB: Insurance:[facility] CenterB: [facility] [place] CityPolicy Number: [id number] System ADELSO CHENEYAURORA [facility], Effective [address] Repository [place] Date:2018-01-12 [place] [address]Kfk: 5504-33-25Lfbs [place] Name:Medical MutualPO [address]Kdi: (HP) [address], [place] [address]WN: (800) (HP) 000-0000 (WP) 01/12/2018 Secondary [facility] Insurance:[facility] [facility] [facility] BO[facility]B: [facility] [id number] System MCOPolicy Number: Beck MARSHALL Effective [place] Date:2018-01-1269888-2[address]Oyl: 6945-87-47Ginl Name:CD:[id number] (HP)Tel: (000) [address], [place] 000-0000 (WP) [address]XH: 01/11/2018 CRISTIAN Armstrong Primary ELIZABETH ZULUAGAB: Insurance:1500 HICKEYDOB: [facility] [id number] System [facility], Number: Effective [address] Repository [place] Date:2018-01-10 [place] [address]Por: 9563-23-40Ywro [facility] [place] Name:CD:[id number] O [address]Vad: (HP) [address], [place] [address]DU: (800) (HP) 000-0000 (WP) 01/07/2018 CRISTIAN Armstrong Primary ELIZABETH ZULUAGAB: Insurance:1500 HICKEYDOB: [facility] [id number] System [facility], Number: Effective [address] Repository [place] Date:2018-01-04 [place] [address]Eis: 5124-56-67Zufc [place], [place] Name:CD:[id number] O [address]Nlo: (HP) [address] [place] [address]MH: (800) (HP) 000-0000 (WP) 12/29/2017 CRISTIAN Armstrong Primary ELIZABETH ZULUAGAB: Insurance:1500 HICKEYDOB: [facility] MEDICAL [facility] [id number] System [facility], Number: Effective [address] Repository [place] Date:2017-12-23 [place] [address]Pok: 7301-42-54Joux [place], [place] Name:CD:[id number] O [address]Nmk: (HP) [address] [address]AM: (800) (HP) [phone] (WP)
== END ==
PROVIDERS: Family Provider Family Medicine; PCP Family Medicine; Referring Provider Obstetrics & Gynecology; Visit Provider Obstetrics & Gynecology
DX: Z12.4 Encounter for screening for malignant neoplasm of cervix (principal); Z11.3 Encounter for screening for infections with a predominantly sexual mode of transmission
CPT/HCPCS: 87491; 87591; 88175; G0145

== ENCOUNTER → 2018-11-25 09:44 | Outpatient (CLI) | payer OTHER, MEDICAID, SELFPAY ==
[2018-11-25 11:01] LABS: Color, Urine Yellow (Yellow); Glucose, Dipstick Normal (Normal); Ketone-Dipstick Negative (Negative); Leukocyte Esterase-Dipstick Negative /ul (Negative); Nitrite-Dipstick Negative (Negative); Occult Blood-Urine Negative /ul (Negative); Protein-Dipstick Negative (Negative); Urine Bilirubin Dipstick Negative (Negative); Urine Clarity Sl. Cloudy (Clear); Urine Urobilinogen Normal (Normal)
[2018-11-25 11:21] LABS: Amphetamine Urine VISTA NEGATIVE (<1000 ng/mL); Barbiturate Urine VISTA NEGATIVE (< 200 ng/mL); Benzodiazepine Urine VISTA NEGATIVE (< 200 ng/mL); Cocaine Urine VISTA NEGATIVE (< 300 ng/mL); Ecstacy Urine VISTA NEGATIVE (< 500 ng/mL); Methadone Urine VISTA NEGATIVE (< 300 ng/mL); PCP Urine VISTA NEGATIVE (< 25 ng/mL); THC Urine VISTA NEGATIVE (< 50 ng/mL); Vista UDS pH Range 6
[2018-11-25 12:02] LABS: COTININE Drug Screen Negative (<200 ng/mL)
[2018-11-25 13:57] LABS: Absolute Lymphocyte Count 2.04 X10^3/ul (0.83-4.51); Basophil# 0.01 X10^3/uL; Basophil% 0.1 % (0-1); Eosinophil# 0.08 X10^3/uL; Eosinophils% 1.1 % (0-5); Hematocrit 39.1 % (37-47); Hemoglobin 13.3 g/dl (12.0-15.0); Lymphocyte # 2.04 X10^3/ul (4.0); Lymphocyte % 27.1 % (19-41); Mean Corpuscular Hgb 28.9 pg (27.0-32.0); Mean Platelet Vol. 10.2 fl (6.2-12.0); Monocyte# 0.43 X10^3/uL; Monocyte% 5.7 % (0-10); Neutrophil # 4.96 X10^3/uL (2.7-7.7); Neutrophil % 65.9 % (47-70); Platelet Count 272 K/mm3 (150-450); RBC Distribution Width SD 40.3 fl (35.1-43.9); White Blood Count 7.5 K/mm3 (4.4-11.0)
[2018-11-25 14:01] LABS: POSITIVE COUNT NO; POSITIVE DIFFERENTIAL NO; POSITIVE MORPHOLOGY NO
[2018-11-25 14:05] LABS: Thyroid Stim Hormone (TSH) 0.38 uIU/mL (0.358-3.74)
[2018-11-25 14:47] LABS: HIV - WCH Non-Reactive (Nonreactive); Rubella IgG 18.6 IU/mL
[2018-11-27 11:13] LABS: HEPATITIS B SURFACE AG Negative (Negative); Hep C Antibodies <0.1 s/co ratio (0.0-0.9); V-Zoster IgG (Immunity) 440 index (Immune >165)
[2018-12-02 01:40] LABS: Prenatal RPR NONREACTIVE (NONREACTIVE)
== END ==
PROVIDERS: Visit Provider Obstetrics & Gynecology
DX: Z34.81 Encounter for supervision of other normal pregnancy, first trimester (principal)
CPT/HCPCS: 36415; 80307; 81002; 84443; 85025; 86703; 86762; 86787; 86803; 87340

== ENCOUNTER 2018-12-29 06:04 | Day surgery (SDC) | payer OTHER, MEDICAID, SELFPAY ==
--- NOTE | 2018-12-29 | POC_PTH ---
PATIENT: CRISTIAN DENNIS LOC: [facility] U#:[id number] AGE/SX: 23/F ROOM: RE12/29/[address]: Dr. William Avalos MD : 1995 BED: DIS: 12/29/2018 SPEC #: [id number] RECD: 12/29/18 14:38 STATUS: ABHIJIT JESSICA #: [id number] FARRAH: 12/29/18 00:[address]: William Avalos DEPT: SURGICAL PATHOLOGY RECD BY: Cedric Stark ENTERED: 12/29/18 14:39 SP TYPE: PROD CONC OTHR DR: Dr. Ngoc Rivas MD Tissues: Product of conception, NOS Procedures: Surgery Specimen Level IV HEADER OPERATION: Dilation and curettage, suction PRE-OP DIAGNOSIS: Missed TISSUE SUBMITTED: Products of conception MICROSCOPIC DIAGNOSIS Endometrium, curettage: Chorionic villi, decidualized stroma and tissue consistent with products of conception. AM:heydi 12/30/18 MICROSCOPIC DESCRIPTION Slides are reviewed. GROSS DESCRIPTION Received in fixative is one container labeled with the patient's name and designated products of conception. The specimen consists of multiple irregular fragments of pink-red soft tissue that in aggregate measure 11 x 11 x 1.2 cm. parts are not grossly recognized. Light Armored Reconnaissance Officer portions are submitted in one cassette. / AM:heydi 12/29/18 TC:5 CPT: 28487
[2018-12-29 06:33] VITALS: BP 111/73; PULSE 90; RESP 16; TEMP 36.5; O2SAT 99; BMI 39.9
[2018-12-29 06:42] LABS: Hematocrit 41.2 % (37-47); Hemoglobin 14.1 g/dl (12.0-15.0); Mean Corp Hgb Conc 34.2 g/gl (32-36); Mean Corpuscular Hgb 29.6 pg (27.0-32.0); Mean Corpuscular Volume 86.6 fL (81-99); Mean Platelet Vol. 10.2 fl (6.2-12.0); Platelet Count 250 K/mm3 (150-450); RBC Distribution Width CV 13.2 % (11.6-14.6); RBC Distribution Width SD 40.4 fl (35.1-43.9); Red Blood Count 4.76 M/mm3 (4.2-5.4); White Blood Count 6.7 K/mm3 (4.4-11.0)
[2018-12-29 06:52] LABS: Prothrombin Time (Protime)PT. 13.1 SECONDS (11.7-14.9); Scan Indicated on CBC? Y/N NO
[2018-12-29 06:53] LABS: Partial Thromboplast Time 29.1 Seconds (24.1-36.2)
--- NOTE | 2018-12-29 07:35 | DCINST_ITS ---
You will use the following diet at home:: No restrictions Your food should be the consistency of: Regular Discharge Activity: Return to Normal Activity, No Restrictions, May Drive, May not drive while taking narcotic pain medications., May Shower Return to work on:: 01/23/19 May shower in (days): 0 May resume sexual activity in: 4 weeks Call your doctor if your incision/area has: Sudden Increased Bleeding, Foul Smelling Discharge Call your doctor if you observe: Fever of 101 or Higher, Inability to urinate, Inability to have a bowel movement, Using more than one pad per hour, Shortness of breath, Chest pain, Calf discomfort, Uncontrolled pain Cleanse incision/area with: Soap & Water Allergies/Adverse Reactions: Allergies No Known Allergies Allergy (Verified 12/26/18 12:58) Medications to take at Discharge Ibuprofen 600 mg PO 4X/DAY #30 tab 12/29/18 Oxycodone [Oxyfast] 5 mg PO Q4H PRN PRN 7 Days #14 ml 12/29/18 The following prescriptions were given: Oxycodone [Oxyfast] 5 mg PO Q4H PRN PRN 7 Days #14 ml PRN Reason: strong pain Ibuprofen 600 mg PO 4X/DAY #30 tab Primary Care Physician: Ngoc Rivas [Primary Care Provider] - Test Results: Test results from this visit will be discussed in further detail at your follow- up appointment, if applicable. Please Follow Up With: William Avalos MD When: 2 weeks Proposed Discharge Date: 12/29/18
[2018-12-29] MEDS: Lubricating Jelly 60 GM Tube 30 GM TOPICAL (07:39)
[2018-12-29 07:56] VITALS: BP 110/85; BP 111/73; PULSE 82; RESP 16; TEMP 36.7; O2SAT 95
[2018-12-29 08:00] VITALS: BP 110/64; BP 111/73; PULSE 75; RESP 16; O2SAT 98
--- NOTE | 2018-12-29 08:00 | OP.PCM_ITS ---
Problem List (1) Missed with demise before 20 completed weeks of gestation Status: Acute Report of Operation Date of Procedure: 12/29/18 Pre-Operative Diagnosis: Embryonic demise at 10w5d EGA Post-Operative Diagnosis: Same Surgery/Procedure Performed:: Suction D and E Description of Surgical Findings:: Normal appearing cervix. Uterus 12 weeks size. Products of conception appropriate for gestational age at time of embryonic demise. 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 She was taken to the OR with IV running. She was given two grams of Cefotetan intravenously prior to the procedure. MAC anesthesia was introduced without complication. She was then prepped and draped in the dorsal lithotomy position. The bladder was drained with a red rubber catheter. A weighted speculum was placed in the posterior vagina, the cervix was identified and the anterior lip grasped with a single toothed tenaculum. The cervix was then dilated to 30 Maori without difficulty. A #10 suction curette was then placed to the fundus, suction applied and products of conception were obtained. The suction curette was removed and a sharp curettage was performed to a gritty texture throughout. The suction curette was placed for a second time and the remaining products of conception were obtained. All instruments were then removed from the vagina. Hemostasis was adequate. She was reversed from anesthesia and taken to the recovery room in good condition. Sponge and instrument counts were correct. Grafts/Implants Used: none - Complications none - Admit VTE Documentation VTE Present on Admission: No VTE Mechan Device Prophylaxis: SCD's VTE Pharm Prophylaxis ordered?: No
[2018-12-29 08:06] VITALS: BP 111/73; BP 112/55; PULSE 80; RESP 18; O2SAT 98
[2018-12-29 08:12] VITALS: BP 111/73; BP 99/68; PULSE 71; RESP 16; TEMP 36.3; O2SAT 99
[2018-12-29 09:40] VITALS: BP 111/73
== END 2018-12-29 09:53 | disposition home or self-care (01) ==
LOC: SDC 06:05 → AC 06:07
PROVIDERS: Family Provider Internal Medicine; PCP Internal Medicine; Referring Provider Obstetrics & Gynecology; Visit Provider Obstetrics & Gynecology
PROC: (CPT 59820; principal; 2018-12-29 07:15)
DX: O02.1 Missed abortion (principal)
CPT/HCPCS: 59820; 36415; 85027; 85610; 85730; 86850; 86900; 88305; 90384; J7120; J2790

== ENCOUNTER → 2019-12-06 14:58 | Outpatient (CLI) | payer BC, SELFPAY ==
[2019-12-06 19:12] LABS: Chlamydia Trachomatis by PCR Negative (Negative); Neisserai gonorrhoeae by PCR Negative (Negative); Probe Check PASS; Sample Adequacy Control PASS; Specimen Processing Control PASS
== END ==
PROVIDERS: Visit Provider Obstetrics & Gynecology
DX: Z11.3 Encounter for screening for infections with a predominantly sexual mode of transmission (principal)
CPT/HCPCS: 87491; 87591

== ENCOUNTER → 2019-12-26 14:27 | Outpatient (CLI) | payer BC, MEDICAID, SELFPAY ==
[2019-12-26 16:03] LABS: Absolute Lymphocyte Count 1.68 X10^3/uL (0.83-4.51); Absolute Neutrophil Count 5.3 X10^3/uL (2.0-7.7); Basophil# 0.03 X10^3/uL; Basophil% 0.4 % (0-1); Eosinophil# 0.25 X10^3/uL; Eosinophils% 3.2 % (0-5); Hemoglobin 13.6 g/dL (12.0-15.0); Lymphocyte # 1.68 X10^3/ul (4.0); Lymphocyte % 21.5 % (19-41); Mean Corp Hgb Conc 32.4 g/dL (32-36); Mean Corpuscular Hgb 27.2 pg (27.0-32.0); Mean Platelet Vol. 10.3 fl (6.2-12.0); Monocyte# 0.52 X10^3/uL; Monocyte% 6.7 % (0-10); NRBC Flagged by Analyzer 0 % (0-5); Neutrophil % 67.9 % (47-70); Platelet Count 298 K/mm3 (150-450); RBC Distribution Width CV 13.2 % (11.6-14.6); RBC Distribution Width SD 40.3 fl (35.1-43.9); White Blood Count 7.8 K/mm3 (4.4-11.0)
[2019-12-26 16:04] LABS: Color, Urine Yellow (Yellow); Glucose, Dipstick Normal (Normal); Ketone-Dipstick 5 mg/dl (Negative); Leukocyte Esterase-Dipstick 25 /ul (Negative); Nitrite-Dipstick Negative (Negative); Occult Blood-Urine Negative /ul (Negative); Protein-Dipstick Negative (Negative); Urine Bilirubin Dipstick Negative (Negative); Urine Clarity Sl. Cloudy (Clear); Urine Urobilinogen Normal (Normal)
[2019-12-26 16:21] LABS: Amphetamine Urine VISTA NEGATIVE (<1000 ng/mL); Barbiturate Urine VISTA NEGATIVE (< 200 ng/mL); Benzodiazepine Urine VISTA NEGATIVE (< 200 ng/mL); Cocaine Urine VISTA NEGATIVE (< 300 ng/mL); Ecstacy Urine VISTA NEGATIVE (< 500 ng/mL); Methadone Urine VISTA NEGATIVE (< 300 ng/mL); PCP Urine VISTA NEGATIVE (< 25 ng/mL); THC Urine VISTA NEGATIVE (< 50 ng/mL); Vista UDS pH Range 6
[2019-12-26 16:40] LABS: Glucose Challenge Gest 1H 50g 68 mg/dL (70-140); Thyroid Stim Hormone (TSH) 0.32 uIU/mL (0.358-3.74)
[2019-12-27 12:14] LABS: HIV - WCH Non-Reactive (Nonreactive); Hepatitis B Surface Antigen Non-Reactive (Nonreactive); Hepatitis C Antibody Non-Reactive (Nonreactive); Rubella IgG 20.9 IU/mL
[2019-12-28 03:16] LABS: Prenatal RPR NONREACTIVE (NONREACTIVE)
== END ==
PROVIDERS: Visit Provider Advanced Practice Midwife
DX: Z34.81 Encounter for supervision of other normal pregnancy, first trimester (principal)
CPT/HCPCS: 36415; 80307; 81002; 82950; 84443; 85025; 86703; 86762; 86803; 87340

== ENCOUNTER 2020-02-08 12:13 | Day surgery (SDC) | payer BC, MEDICAID, SELFPAY ==
[2020-02-07 14:11] LABS: Hematocrit 42.2 % (37-47); Hemoglobin 14.3 g/dL (12.0-15.0); Mean Corp Hgb Conc 33.9 g/dL (32-36); Mean Corpuscular Hgb 28.7 pg (27.0-32.0); Mean Corpuscular Volume 84.6 fL (81-99); Mean Platelet Vol. 10.3 fl (6.2-12.0); Platelet Count 265 K/mm3 (150-450); RBC Distribution Width CV 13.5 % (11.6-14.6); RBC Distribution Width SD 41.7 fl (35.1-43.9); Red Blood Count 4.99 M/mm3 (4.2-5.4); White Blood Count 8.9 K/mm3 (4.4-11.0)
[2020-02-07 14:57] LABS: International Normalized Ratio 1.1; Prothrombin Time (Protime)PT. 13.5 SECONDS (11.7-14.9)
[2020-02-07 14:58] LABS: Partial Thromboplast Time 27.2 Seconds (24.1-36.2)
--- NOTE | 2020-02-08 | POC_PTH ---
PATIENT: CRISTIAN DENNIS LOC: [facility] U#:[id number] AGE/SX: 24/F ROOM: RE02/08/[address]: Dr. Dora Walsh MD : 1995 BED: DIS: 02/08/2020 SPEC #: [id number] RECD: 02/09/20 07:53 STATUS: ABHIJIT RETonia #: [id number] FARRAH: 02/08/20 00:[address]: Dora Camargo DEPT: SURGICAL PATHOLOGY RECD BY: Cedric Stark ENTERED: 02/09/20 07:54 SP TYPE: PROD CONC OTHR DR: Dr. Mustapha Weinstein MD Tissues: Product of conception, NOS Procedures: Surgery Specimen Level IV HEADER OPERATION: Dilation and curettage, suction PRE-OP DIAGNOSIS: Missed TISSUE SUBMITTED: Products of conception MICROSCOPIC DIAGNOSIS Endometrium, curettage: parts and chorionic villi consistent with products of conception. AM:heydi 02/12/20 MICROSCOPIC DESCRIPTION Slides are reviewed. GROSS DESCRIPTION Received in fixative is one container labeled with the patient's name and designated products of conception. The specimen consists of multiple irregular fragments of light to dark mathews soft tissue including parts that in aggregate measure 12 x 10 x 2 cm. The parts consists of a macerated fetus of unknown sex. Thread Spinner portions are submitted in two cassettes. / AM:heydi 02/09/20 TC:5 CPT: 29182
--- NOTE | 2020-02-08 08:42 | PCM.HPOB.BLA ---
- Problem List (1) Missed with demise before 20 completed weeks of gestation Status: Acute History and Physical Date of Admission: 02/08/20 Surgical History and Physical Date: 02/08/2020 Name: CRISTIAN DENNIS Age: 24 Date of : 1995 Cristian Dennis, a 24 year old female 2 0 1 0 2, presents for D and E with suction on February 08, 2020\ at 1:30\. -- Has IUFD diagnosed yesterday at 13w6d gestation. hx uterine fibroid and subchorionic hematoma this . She has a hx 10w demise in 11/2018 requiring suction D&C. She underwent laminaria placement yesterday. [facility] MEDICATIONS HISTORY: Current medications prescribed by our practice are: 1. misoprostol 200 mcg tablet, 2 tabs PO with sip of water 6 hours before procedure ALLERGIES: No Known Allergies Infections - NO Chicken Pox, had Varicella Zoster Vaccine Illnesses - none Accidents - Torn ACL Left Knee 2008 Hospitalizations - see surgery and Childbirth Anxiety Post 11/2017; Review of Systems: GENERAL - Denies fever, or chills SKIN - Denies skin changes EYES - Denies visual changes EARS - Denies difficulty hearing NOSE - Denies nasal congestion or bleeding MOUTH - Denies sore throat or difficulty swallowing NECK - Denies pain or swelling RESPIRATORY - Denies shortness of breath or wheezing CARDIOVASCULAR - Denies palpitations or chest pain GASTROINTESTINAL - Denies nausea, vomiting, diarrhea, constipation GENITOURINARY - Denies dysuria, frequency of urination, incontinence of urine MUSCULOSKELETAL - Denies joint or muscle pain NEUROLOGICAL - Denies localized numbness or weakness PSYCHIATRIC - tearful ENDOCRINE - Denies heat or cold intolerance, weight loss or gain HEMATO-IMMUNOLOGIC - Denies excesive bleeding with cuts SOCIAL HISTORY: Alcohol Use - denies drinking Smoking - Never Diet - balanced Diet Lifestyle - low stress lifestyle and Exercise - active work Seat Belt Use - always Employer - [employer] Illicit Drug Use - denies use of street drugs Sexual Activity - Residence - lives with Place of - [place], [place] Spouse-Sig Other Name - Tanvir Dennis Spouse-Sig Other Occupation - [employer]ER Spouse-Sig Other Phone No - [phone] Children Name(s) - Elenita (03/13/16) Halran JOHNSON (08/08/17) [employer] - FAMILY HISTORY: MENSTRUAL HISTORY: LMP Known?- DefiniteAmount/Duration - 5 days, Regularity - Regular, Frequency - q 28 days days, LMP - 10/27/19, Age Onset Menarche - 9 PAST PREGNANCIES: Total Pregnancies - 4; Full Term Pregnancies - 2; Premature - 0; Abortions, Induced - 0; Abortions, Spontaneous - 1; Ectopics - 0; Multiple Births - 0; Living Children - 2 SURGICAL HISTORY: 1. 12/29/2018 Suction D and E ; Dr William Avalos - 2. ACL Repair Left Knee 2008 ; - PHYSICAL EXAM BP- 130/80 Sitting, Right arm, regular cuff Weight- 213.78425 lbs Height- 61 inch BMI:40.33 CONSTITUTIONAL - NAD, well nourished, and well developed SKIN - No rash, lesions, or ulcers HEENT - normocephalic, atraumatic, sclerae anicteric LUNGS - normal respiratory rate and rhythm NEUROLOGICAL - normal gait, normal balance, normal motor PSYCHIATRIC - A and O to time, place, person, mood and affect External Genitial Vagina - non-tender without lesions Urethra/Urethral Meatus - non-tender Bladder - non-tender Vagina - vaginal castelan are pink and moist without loss of rugae and no evidence of atropy Cervix - without cervical motion tenderness and has normal size and features without evident lesions Uterus - 14w size, + tenderness at site of anterior fibroid Adnexa - clear without massess or tenderness ASSESSMENT/PLAN: 1. Missed -Laminaria x 2 placed with single gauze -Consents signed and reviewed in office -Proceed as planned
[2020-02-08 12:41] VITALS: BP 118/90; PULSE 103; RESP 14; TEMP 36.7; O2SAT 100; BMI 39.4
[2020-02-08] MEDS: Lactated Ringers 1,000 ML 125 ML IV (13:06)
[2020-02-08] MEDS: Lubricating Jelly 60 GM Tube 30 GM TOPICAL (13:46)
[2020-02-08 14:55] VITALS: BP 118/90; BP 120/73; PULSE 100; RESP 16; TEMP 36.4; O2SAT 100
[2020-02-08 15:00] VITALS: BP 118/90; BP 122/79; PULSE 97; RESP 16; O2SAT 100
[2020-02-08 15:05] VITALS: BP 116/78; BP 118/90; PULSE 86; RESP 16; O2SAT 100
--- NOTE | 2020-02-08 15:08 | DCINST_ITS ---
Discharge Diet: No Restrictions Discharge Activity: Return to Normal Activity, May Shower, - - No tub bath for 1-2 weeks May resume sexual activity in: 4 weeks Call your doctor if you observe: Fever of 101 or Higher, Using more than one pad per hour, Shortness of breath, Chest pain, Calf discomfort, Uncontrolled pain Instructions: Dilation and Curettage Allergies/Adverse Reactions: Allergies lidocaine Adverse Reaction (Verified 02/08/20 12:41) Nausea Medications to take at Discharge Doxycycline 100 mg PO BID #14 cap 02/08/20 Ibuprofen 600 mg PO TID PRN #30 tab 02/08/20 Misoprostol [Cytotec] 4 tab PO X1 #4 tab 02/08/20 The following prescriptions were given: Misoprostol [Cytotec] 4 tab PO X1 #4 tab Transmission Status: Pending to [id number] Doxycycline 100 mg PO BID #14 cap Transmission Status: Pending to [id number] Ibuprofen 600 mg PO TID PRN #30 tab PRN Reason: pain Transmission Status: Pending to [id number] Primary Care Physician: Mustapha Weinstein MD [Primary Care Provider] - Test Results: Test results from this visit will be discussed in further detail at your follow- up appointment, if applicable. Please Follow Up With: Dora Mcmahon MD When: 1-2 weeks
[2020-02-08 15:10] VITALS: BP 118/90; BP 120/78; PULSE 88; RESP 16; TEMP 37; O2SAT 100
[2020-02-08 15:50] VITALS: BP 118/90
--- NOTE | 2020-02-10 11:30 | PCM.OPRPT ---
Problem List (1) Missed with demise before 20 completed weeks of gestation Status: Acute Report of Operation Date of Procedure: 02/08/20 Pre-Operative Diagnosis: 13 week demise Post-Operative Diagnosis: 13 week demise Surgery/Procedure Performed:: Examination under anesthesia, Suction dilation and evacuation Description of Surgical Findings:: Fibroid uterus Type of Anesthesia:: MAC Anesthesiologist: Ryder Jacob Specimen's removed: products of conception Estimated Blood Loss (mL): 50 Fluids Replaced: 700 ml Description of Procedure: Patient was brought to the operating room and signed was performed. She was placed in the dorsal supine position and induced under MAC. She was then repositioned to dorsolithotomy and examination under anesthesia was performed. The perineum was prepped and draped in sterile fashion. The patient was repositioned to high lithotomy. Speculum was placed into the vagina, a single gauze and 2 laminaria were removed. the cervix grasped at the anterior cervical lip using a single-tooth tenaculum. Bedside ultrasound was performed demonstrating demise consistent with 13 weeks gestational age as per prior ultrasound. The cervix was dilated amniotomy occurring. Under ultrasound guidance a 14 mm curved suction curette was introduced into the uterine cavity with decompression of the uterus. Ultrasound however demonstrated retained products of conception, attempted to remove the forcep clamp however there was difficulty due to the fibroid uterus. I called for additional assistance and Dr. Jane Yang scrubbed in to assist. With further US guidance, sharp curettage was performed and again followed by suction curettage with retrieval of additional products. The endometrial stripe was thin and hyperechoic. The procedure was complete. The tenaculum was removed from the cervix and the tenaculum site was hemostatic. The speculum was removed from the vagina. The patient was placed into dorsal supine position, awakened and transferred to the recovery room without complication. Sponge counts were correct x 2. - Complications none - Admit VTE Documentation VTE Present on Admission: No VTE Mechan Device Prophylaxis: SCD's
== END 2020-02-08 16:00 | disposition home or self-care (01) ==
LOC: SDC 12:14 → AC 12:15
PROVIDERS: PCP Family Medicine; Referring Provider Obstetrics & Gynecology; Visit Provider Obstetrics & Gynecology
PROC: (CPT 59820; principal; 2020-02-08 13:15)
DX: O02.1 Missed abortion (principal); Z3A.13 13 weeks gestation of pregnancy; D25.9 Leiomyoma of uterus, unspecified
CPT/HCPCS: 01965; 59820; 36415; 85027; 85610; 85730; 86850; 86900; 86901; 88305; 90384; J7120; J2405; J2790

== ENCOUNTER → 2020-06-18 14:39 | Outpatient (CLI) | payer BC, SELFPAY ==
[2020-06-18 15:03] LABS: Hematocrit 42.3 % (37-47); Hemoglobin 13.9 g/dL (12.0-15.0); Mean Corp Hgb Conc 32.9 g/dL (32-36); Mean Corpuscular Hgb 28.5 pg (27.0-32.0); Mean Corpuscular Volume 86.9 fL (81-99); Mean Platelet Vol. 10.3 fl (6.2-12.0); Platelet Count 302 K/mm3 (150-450); RBC Distribution Width CV 12.2 % (11.6-14.6); RBC Distribution Width SD 38.8 fl (35.1-43.9); Red Blood Count 4.87 M/mm3 (4.2-5.4); White Blood Count 7.2 K/mm3 (4.4-11.0)
[2020-06-18 15:30] LABS: Ferritin 27 ng/mL (8-252); Iron 127 ug/dL (50-170); Iron Binding Capacity,Total 335 ug/dL (250-450); PERCENT IRON SATURATION 37.9 % (15.0-55.0)
== END ==
PROVIDERS: PCP Family Medicine; Visit Provider Obstetrics & Gynecology
DX: N96 Recurrent pregnancy loss (principal); N92.0 Excessive and frequent menstruation with regular cycle
CPT/HCPCS: 36415; 82728; 83540; 83550; 85027